=== PATIENT | female | born 1980 | race Caucasian/White ===

== ENCOUNTER 2021-05-27 05:58 | Day surgery (SDC) | payer OTHER ==
[~2021-05-27 05:58] MED LIST: D3 + K2 DOTS 11 EACH PO; SYNTHROID112 MCG PO
[2021-05-27] MEDS ORDERED: PERCOCET 5-3251 EACH PO (08:58)
[2021-05-27] MEDS ORDERED: RECTICARE30 GM TOP (08:59)
== END 2021-05-27 15:25 | disposition home or self-care (01) ==
LOC: CIR.AMB 05:58
PROVIDERS: ATTEND Surgery
DX: K64.8 Other hemorrhoids (principal); Z20.822 Contact with and (suspected) exposure to COVID-19